=== PATIENT | male | born 2005 | race Caucasian/White ===

== ENCOUNTER 2024-04-07 07:10 | Day surgery (SDC) | payer OTHER ==
[~2024-04-07] VITALS: Ht 177.8 cm; Wt 88.6 kg
[~2024-04-07 07:10] MED LIST: DEXAMETHASONE SOD PHOS 4 MG/ML VIAL ONE; FentaNYL CITRATE PF 100 MCG/2 ML VIAL ONE; GLYCOPYRROLATE 0.2 MG/ML VIAL ONE; LIDOCAINE/PF 2% 5 ML VIAL ONE; MIDAZOLAM HCL 2 MG/2 ML VIAL ONE; ONDANSETRON HCL 4 MG/2 ML VIAL ONE; PROPOFOL 1% 20 ML VIAL IVP ONE; RINGERS SOLUTION,LACTATED 1,000 ML IV ONE; ROCURONIUM BROMIDE 10 MG/ML 5 ML VIAL ONE; SUGAMMADEX SODIUM 200 MG/2 ML VIAL IVP ONE
[2024-04-07] MEDS ORDERED: AMPICILLIN SODIUM 2 GM/NS 100 ML IV ONE (07:35)
[2024-04-07 08:18] LABS: BASOPHILS % (AUTO) 0.6 % (0.0-2.0); EOSINOPHILS % (AUTO) 2.8 % (1.0-6.0); HEMATOCRIT 46.1 % (41-53); HEMOGLOBIN 15.1 g/dL (13.5-17.5); LYMPHOCYTES # (AUTO) 2.5 K/uL (1.0-4.8); LYMPHOCYTES % (AUTO) 41.5 % (22.0-44.0); MEAN CORPUSCULAR HGB CONC 32.8 G/dL (31.0-37.0); MEAN CORPUSCULAR VOLUME 85 fL (80-100); MONOCYTES # (AUTO) 0.5 K/uL (0.1-1.0); MONOCYTES % (AUTO) 9.1 % (2.0-9.0); NEUTROPHILS # (AUTO) 2.8 K/uL (1.8-7.7); PLATELET COUNT (AUTO) 229 K/uL (150-450); RED CELL DISTRIBUTION WIDTH 14.5 % (11.5-14.5)
[2024-04-07 08:25] LABS: ANION GAP 6 mmol/L (8-16); CALCIUM, TOTAL 8.9 mg/dL (8.8-10.5); CARBON DIOXIDE 31 mmol/L (22-29); CHLORIDE 104 mmol/L (98-107); CREATININE 0.94 mg/dL (0.60-1.30); GLOMERULAR FILTR. RATE CALC > 60 mL/min (>60); GLUCOSE,RANDOM 89 mg/dL (70-110); POTASSIUM 4.4 mmol/L (3.5-5.1); SODIUM SERUM 141 mmol/L (136-145); UREA NITROGEN, BLOOD 11 mg/dL (7-18)
[2024-04-07 08:30] LABS: ALANINE AMINOTRANSFERASE 96 U/L (12-78); ALBUMIN 3.4 g/dL (3.4-5.0); ALKALINE PHOSPHATASE 70 U/L (46-116); ASPARTATE AMINOTRANSFERASE 58 U/L (15-37); BILIRUBIN,TOTAL 0.5 mg/dL (0.1-1.0); TOTAL PROTEIN, SERUM 6.7 g/dL (6.4-8.2)
[2024-04-07 08:34] LABS: PROTHROMBIN TIME 10.8 SEC (9.4-11.6)
[2024-04-07] MEDS: RINGERS SOLUTION,LACTATED 1,000 ML IV ONE (09:21)
[2024-04-07] MEDS ORDERED: MEPERIDINE-PF 25 MG/ML VIAL IVP PRN (09:30)
[2024-04-07] MEDS ORDERED: FentaNYL CITRATE PF 100 MCG/2 ML VIAL IVP PRN (09:30)
[2024-04-07] MEDS ORDERED: HYDROmorphone HCL 2 MG/ML SYRINGE IVP PRN (09:30)
[2024-04-07] MEDS ORDERED: CHOL500043 PO (09:36)
[2024-04-07] MEDS ORDERED: MELA5TAB40 PO (09:36)
[2024-04-07] MEDS ORDERED: QUET50TA15 PO (09:36)
[2024-04-07] MEDS ORDERED: OXYGEN THERAPY IH SCH (20:00)
== END 2024-04-07 10:55 | disposition home or self-care (01) ==
LOC: SURGERY 07:10
PROVIDERS: ATTEND Dentist General Practice
DX: K02.9 Dental caries, unspecified (principal); K05.6 Periodontal disease, unspecified; F90.9 Attention-deficit hyperactivity disorder, unspecified type; F84.0 Autistic disorder; Z79.899 Other long term (current) drug therapy
CPT/HCPCS: 41899; 80053; 85025; 85610; 85730; 36415; 93005; 71045; J0290; J2704; J1100; J3010; J3490 ×4; J2250; J2405; J7120